=== PATIENT | female | born 1985 | race Two or more races ===

== ENCOUNTER 2018-11-05 10:42 | Emergency (ER) | payer BC, OTHER ==
[~2018-11-05] VITALS: Ht 167.6 cm; Wt 150.1 kg
[~2018-11-05 10:42] MED LIST: HYDR-3974 PO
--- NOTE | 2018-11-05 11:18 | NUR ---
C/O BACK PAIN x 3 DAYS PS 10, WORST TODAY. STATES SHE VOMIT X 1 ON SUNDAY, -N/V TODAY. PAIN IS SHARP, FEELS BETTER WITH WARM COMPRESS. AOX4, AMBULATORY, VSS, RR EVEN AND UNLABORED ON RA. URINE OBTAINED AND SENT TO STAT LAB. MADE COMFORTABLE. READY FOR EVAL.
--- NOTE | 2018-11-05 11:20 | NUR ---
SEEN BY TERRENCE REYNA
[2018-11-05] MEDS ORDERED: DEXAMETHASONE SOD PHOSPHATE 10 MG/ML VIAL ONE (11:31)
[2018-11-05] MEDS ORDERED: KETOROLAC TROMETHAMINE INJ 60 MG/2 ML VIAL IM ONE (11:32)
[2018-11-05 11:35] LABS: APPEARANCE,URINE Clear (CLEAR); BILIRUBIN,URINE Negative (NEGATIVE); BLOOD, URINE Negative Ery/uL (NEGATIVE); COLOR,URINE Yellow (YELLOW); KETONES,URINE Negative (NEGATIVE); LEUKOCYTE ESTERASE ,URINE Trace (NEGATIVE); NITRITE, URINE Negative (NEGATIVE); PH,URINE 5.5 (5.0-8.0); PROTEIN,URINE Negative (NEGATIVE); UGLUCOSE Negative (NEGATIVE); UROBILINOGEN,URINE 0.2 EU/dL (0.2)
[2018-11-05 11:40] LABS: BACTERIA,URINE None seen /HPF (None Seen); RBC,URINE 0-2 /HPF (0-2); SQUAMOUS EPITHELIAL CELL,UR Few /HPF (None Seen); WBC,URINE 0-2 /HPF (0-3)
[2018-11-05] MEDS: DEXAMETHASONE SOD PHOSPHATE 4 MG/ML VIAL IM ONE (11:44)
[2018-11-05] MEDS: KETOROLAC TROMETHAMINE INJ 60 MG/2 ML VIAL IM ONE (11:45)
--- NOTE | 2018-11-05 11:45 | NUR ---
IM MEDICATIONS ADMINSISTERED. PT ELDER WELL. PROVIDED BLANKETS FOR COMFORT. WILL CONT TO MONITOR.
[2018-11-05] MEDS ORDERED: CYCLOBENZAPRINE 10 MG TABLET ONE (12:06)
[2018-11-05] MEDS: CYCLOBENZAPRINE 10 MG TABLET PO ONE (12:09)
--- NOTE | 2018-11-05 12:40 | NUR ---
Patient discharged to home in stable condition. Written and verbal after care instructions given. Patient verbalizes understanding of instruction.
[2018-11-05 12:44] VITALS: BP 139/68
== END 2018-11-05 12:46 | disposition home or self-care (01) ==
LOC: ER 10:42
DX: M54.5 Low back pain (principal); F10.10 Alcohol abuse, uncomplicated; G50.0 Trigeminal neuralgia; Y90.9 Presence of alcohol in blood, level not specified; Z90.89 Acquired absence of other organs; Z88.5 Allergy status to narcotic agent
CPT/HCPCS: 81001; 84703; 96372 ×2; 99283; J1100; J1885; 81000-TC